=== PATIENT | male | born 1970 | race Caucasian/White ===

== ENCOUNTER 2021-01-14 15:37 | Emergency (ER) | payer OTHER, BC ==
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
[2021-01-14] MEDS ORDERED: Take Home: Acetaminophen/HYDROcodone 325-5 MG, 5 Tab Pack PO ONE (16:30)
--- NOTE | 2021-01-14 16:46 | CR ---
[id number] RAD/RAD Clavicle Left Exam: RAD Clavicle Left Indication:FALL ON LEFT SHOULDER. Comparison: No prior imaging for comparison. Discussion/Impression: Acute comminuted mid left clavicle fracture. There are 3 fragments. At the major fracture site, distal fragment is displaced slightly more than a shaft width inferior in relation of the proximal fragment. Coracoclavicular and acromioclavicular intervals are intact. Mild acromioclavicular osteoarthritis. Denys Salgado MD 01/14/21 1877 Thank you for allowing us to participate in the care of your patient.
== END 2021-01-14 16:52 | disposition home or self-care (01) ==
LOC: VM.ED 15:37
DX: S42.022A Displaced fracture of shaft of left clavicle, initial encounter for closed fracture (principal); Z88.0 Allergy status to penicillin; Z88.1 Allergy status to other antibiotic agents; Z79.82 Long term (current) use of aspirin; Z79.899 Other long term (current) drug therapy; V89.1XXA Person injured in unspecified nonmotor-vehicle accident, nontraffic, initial encounter
CPT/HCPCS: 73000-LT; 99283; 99283-25; A9270-GY